=== PATIENT | female | born 1990 | race Two or more races ===

== ENCOUNTER 2025-02-01 08:48 | Outpatient (RCR) | payer MEDICAID, SELFPAY ==
[2025-02-01 09:31] LABS: HCG Qualitative,Urine Negative
--- NOTE | 2025-02-01 10:00 | XR_ITS ---
Examination: ALESSIA, hepatobiliary radioisotope scan Gallbladder ejection fraction study. Date and time of exam: February 01, 2025 0939 hours INDICATIONS: Right upper abdominal pain beginning 3 years ago with nausea constipation vomiting Technique: 6.0 mCi of 99M Hepatolite administered. Serial imaging then obtained from immediate through 60 minutes. 2.6 mcg selective catheter Kinevac administered for gallbladder ejection fraction study. Findings: Radioisotope activity within the liver is reasonably homogenous. Gallbladder, common bile duct small bowel activity noted Impression: Gallbladder activity Abnormal gallbladder ejection fraction, 8%, normal greater than 35%
== END 2025-02-06 23:59 | disposition home or self-care (01) ==
LOC: SNUC 08:48
PROVIDERS: Referring Provider Physician Assistant; Visit Provider Physician Assistant
DX: R93.2 Abnormal findings on diagnostic imaging of liver and biliary tract (principal); Z32.00 Encounter for pregnancy test, result unknown
CPT/HCPCS: 78227; 81025; A9537; J2805